=== PATIENT | male | born 1975 | race Caucasian/White ===

== ENCOUNTER 2017-12-16 10:41 | Emergency (ER) | payer OTHER ==
[~2017-12-16] VITALS: Ht 185.4 cm; Wt 104.3 kg
[2017-12-16] MEDS ORDERED: BUPR75 PO (11:02)
[2017-12-16] MEDS ORDERED: ATOR10 PO (11:02)
[2017-12-16] MEDS ORDERED: LOSA50 PO (11:02)
[2017-12-16] MEDS ORDERED: DULO30 PO (11:02)
[2017-12-16] MEDS ORDERED: Voltaren100 GM TOP (11:50)
[2017-12-16] MEDS ORDERED: META800 PO (11:50)
[2017-12-16] MEDS ORDERED: Ultram50 MG PO (11:50)
[2017-12-16] MEDS ORDERED: Prednisone20 MG PO (11:50)
== END 2017-12-16 12:02 | disposition home or self-care (01) ==
LOC: ER 10:41
DX: G89.29 Other chronic pain (principal); M62.830 Muscle spasm of back; Z88.0 Allergy status to penicillin; Z88.2 Allergy status to sulfonamides; Z79.899 Other long term (current) drug therapy
CPT/HCPCS: 96372; 99282; J1885

== ENCOUNTER 2021-04-04 19:32 | Emergency (ER) | payer OTHER ==
[~2021-04-04] VITALS: Ht 185.4 cm; Wt 102.5 kg
== END 2021-04-04 21:28 | disposition home or self-care (01) ==
LOC: ER 19:32
DX: U07.1 COVID-19 (principal); J12.82 Pneumonia due to coronavirus disease 2019
CPT/HCPCS: 99283; A9270

== ENCOUNTER → 2021-04-04 | Outpatient (CLI) | payer OTHER ==
[~2021-04-04] MED LIST: ATOR10 PO; BUPR75 PO; DULO30 PO; LOSA50 PO; META800 PO; Prednisone20 MG PO; Ultram50 MG PO; Voltaren100 GM TOP
[2021-04-04 18:19] LABS: BASOPHILS ABSOLUTE AUTO 0.01 K/mm3 (0.00-0.23); BASOPHILS PERCENT AUTO 0 % (0-2); EOSINOPHILS PERCENT AUTO 0 % (0-6); Hematocrit 50.9 % (37.0-53.0); Hemoglobin 17.5 g/dL (13.5-17.5); IMMATURE GRAN ABSOLUTE AUTO 0.01 K/mm3 (0.00-0.10); IMMATURE GRAN PERCENT AUTO 0 % (0-1); LYMPHOCYTES ABSOLUTE AUTO 0.69 K/mm3 (0.84-5.20); LYMPHOCYTES PERCENT AUTO 15 % (21-46); MONOCYTES ABSOLUTE AUTO 0.26 K/mm3 (0.16-1.47); MONOCYTES PERCENT AUTO 6 % (4-13); Mean Corpuscular HGB Conc 34.4 g/dL (31.5-36.5); Mean Corpuscular Volume 84 fL (80-100); Mean Platelet Volume 10.3 fL (9.1-12.4); NEUTROPHILS ABSOLUTE AUTO 3.51 K/mm3 (1.96-9.15); NEUTROPHILS PERCENT AUTO 78 % (41-73); Platelet Count 150 K/mm3 (150-400); RDW Coefficient Variation 14.1 % (11.7-14.2); RDW Standard Deviation 43.4 fL (35.1-46.3); Red Blood Cell Count 6.04 M/mm3 (4.30-5.90); White Blood Cell Count 4.48 K/mm3 (4.00-11.30)
[2021-04-04 18:34] LABS: Albumin, Blood 4.1 g/dL (3.4-5.0); Albumin/Globulin Ratio 1.3 (0.8-1.8); Bilirubin, Total 0.4 mg/dL (0.1-1.0); Bun/Creatinine Ratio 9.9 (12.0-20.0); Calcium, Blood 8.8 mg/dL (8.5-10.1); Creatinine, Blood 1.51 mg/dL (0.60-1.20); Globulin, Blood 3.1 g/dL (2.2-4.0); Potassium, Blood 4.3 mmol/L (3.5-5.5); Total Protein, Blood 7.2 g/dL (6.4-8.2)
== END | disposition home or self-care (01) ==
LOC: LAB SHORT 18:12
PROVIDERS: Chiropractor
DX: R11.2 Nausea with vomiting, unspecified (principal); R19.7 Diarrhea, unspecified
CPT/HCPCS: 80053; 85025; 85379

== ENCOUNTER 2022-08-30 17:55 | Emergency (ER) | payer OTHER ==
[~2022-08-30] VITALS: Ht 185.4 cm; Wt 104.3 kg
[2022-08-30 18:26] VITALS: BP 174/118
[2022-08-30] MEDS ORDERED: Methocarbamol500 MG PO (18:48)
[2022-08-30] MEDS ORDERED: CYCL10 PO (19:30)
== END 2022-08-30 19:37 | disposition home or self-care (01) ==
LOC: ER 17:55
DX: S39.012A Strain of muscle, fascia and tendon of lower back, initial encounter (principal); M51.36 Other intervertebral disc degeneration, lumbar region; X50.0XXA Overexertion from strenuous movement or load, initial encounter; Z88.0 Allergy status to penicillin; Z88.2 Allergy status to sulfonamides; Z79.899 Other long term (current) drug therapy; I10 Essential (primary) hypertension
CPT/HCPCS: 72100; 96372; 99283-25; A9270; J1885

== ENCOUNTER 2022-10-16 07:22 | Day surgery (SDC) | payer OTHER ==
[~2022-10-16] VITALS: Ht 185.4 cm; Wt 100.4 kg
[~2022-10-16 07:22] MED LIST changes: +CYCL10 PO; +Methocarbamol500 MG PO
[2022-10-16] MEDS ORDERED: AMLO10 (07:49)
[2022-10-16] MEDS ORDERED: MULVITA (07:50)
[2022-10-16] MEDS ORDERED: TESTOSTERONE100 GM (07:50)
[2022-10-16] MEDS ORDERED: Prozac20 MG (07:50)
[2022-10-16 09:15] VITALS: BP 124/77
--- NOTE | 2022-10-16 09:36 | NUR ---
10/16/22 0936 Randi Jensen IV REMOVED, SITE WNL CATHETER INTACT
== END 2022-10-16 09:28 | disposition home or self-care (01) ==
LOC: ORSCSDS 07:22
PROVIDERS: Surgery
PROC: 0DBK8ZX Excision of Ascending Colon, Via Natural or Artificial Opening Endoscopic, Diagnostic (ICD-10-PCS; principal; 2022-10-16 08:45)
DX: Z12.11 Encounter for screening for malignant neoplasm of colon (principal); D12.2 Benign neoplasm of ascending colon; Z72.0 Tobacco use; I10 Essential (primary) hypertension; F41.9 Anxiety disorder, unspecified; F32.A Depression, unspecified; E78.1 Pure hyperglyceridemia; Z79.899 Other long term (current) drug therapy
CPT/HCPCS: 88305; J2704; J7120

== ENCOUNTER → 2023-04-04 | Outpatient (CLI) | payer OTHER ==
[~2023-04-04] MED LIST changes: +AMLO10; +MULVITA; +Prozac20 MG; +TESTOSTERONE100 GM
== END ==
LOC: LAB 09:31 → LAB SHORT 09:31
DX: H11.31 Conjunctival hemorrhage, right eye (principal)
CPT/HCPCS: 87070; 87205